=== PATIENT | male | born 1945 | race African-American/Black ===

== ENCOUNTER 2016-09-05 08:07 | Outpatient (CLI) | payer MEDICARE ==
[2016-09-05 12:10] LABS: INR-International Normal Ratio 2.5; Prothrombin Time 26.9 SEC (12.0-14.7)
== END 2016-09-05 08:08 | disposition home or self-care (01) ==
LOC: MADLAB 08:07
PROVIDERS: ATTEND Specialist
DX: Z51.81 Encounter for therapeutic drug level monitoring (principal); Z79.899 Other long term (current) drug therapy
CPT/HCPCS: 36415; 85610

== ENCOUNTER 2016-10-10 09:03 | Outpatient (CLI) | payer MEDICARE ==
[2016-10-10 09:26] LABS: INR-International Normal Ratio 3.1; Prothrombin Time 31.4 SEC (12.0-14.7)
== END 2016-10-10 09:04 | disposition home or self-care (01) ==
LOC: MADLAB 09:03
PROVIDERS: ATTEND Specialist
DX: Z51.81 Encounter for therapeutic drug level monitoring (principal); Z79.899 Other long term (current) drug therapy
CPT/HCPCS: 36415; 85610

== ENCOUNTER 2016-11-08 09:35 | Outpatient (CLI) | payer MEDICARE ==
[2016-11-08 10:02] LABS: INR-International Normal Ratio 2.4; Prothrombin Time 25.8 SEC (12.0-14.7)
== END 2016-11-08 09:36 | disposition home or self-care (01) ==
LOC: MADLAB 09:35
PROVIDERS: ATTEND Specialist
DX: Z51.81 Encounter for therapeutic drug level monitoring (principal); Z79.899 Other long term (current) drug therapy
CPT/HCPCS: 36415; 85610

== ENCOUNTER 2016-12-22 09:17 | Outpatient (CLI) | payer MEDICARE ==
[2016-12-22 09:37] LABS: INR-International Normal Ratio 3.4; Prothrombin Time 34.2 SEC (12.0-14.7)
== END 2016-12-22 09:18 | disposition home or self-care (01) ==
LOC: MADLAB 09:17
PROVIDERS: ATTEND Specialist
DX: Z51.81 Encounter for therapeutic drug level monitoring (principal); Z79.899 Other long term (current) drug therapy
CPT/HCPCS: 36415; 85610

== ENCOUNTER 2017-02-12 09:32 | Outpatient (CLI) | payer MEDICARE ==
[2017-02-12 10:08] LABS: INR-International Normal Ratio 3.2; Prothrombin Time 32.2 SEC (12.0-14.7)
[2017-02-12 10:18] LABS: Anion Gap 8 mmol/L (10-20); BUN (Urea Nitrogen) 16 mg/dL (8.4-25.7); Calc. Creatinine Clearance 0 mL/min (70-130); Calcium 8.8 mg/dL (7.8-10.44); Carbon Dioxide 27 mmol/L (23-31); Cardiac Risk 3.2 (Less than 4.5); Chloride 109 mmol/L (98-107); Cholesterol 148 mg/dl (< 200 Desired); Estimated GFR-MDRD 47; Glucose 86 mg/dL (80-115); HDL Cholesterol 46 mg/dL (>60 Neg Risk); LDL Cholesterol, Calculated 93 mg/dL; Potassium 4.7 mmol/L (3.5-5.1); Sodium 139 mmol/L (136-145); Triglycerides 44 mg/dL (Less than 150)
[2017-02-12 11:46] LABS: Hemoglobin 13.4 g/dL (14.0-18.0); Mean Corpuscular Hemoglobin 29.5 pg (27.0-31.0); Mean Corpuscular Volume 92.2 fl (80.0-94.0); Mean Platelet Volume 8.5 fL (7.4-10.4); Platelet Count 130 thou/uL (130-400); RBC Distribution Width 13.5 % (11.5-14.5); Red Blood Cell (RBC) Count 4.56 mill/uL (4.70-6.10); White Blood Cell (WBC) Count 5.6 thou/uL (4.8-10.8)
== END 2017-02-12 09:33 | disposition home or self-care (01) ==
LOC: MADLAB 09:32
PROVIDERS: ATTEND Specialist
DX: E11.22 Type 2 diabetes mellitus with diabetic chronic kidney disease (principal); N18.3 Chronic kidney disease, stage 3 (moderate); I48.2 Chronic atrial fibrillation; E78.2 Mixed hyperlipidemia; Z79.899 Other long term (current) drug therapy
CPT/HCPCS: 36415; 80048; 80061; 83735; 85027; 85610

== ENCOUNTER 2017-03-22 08:36 | Outpatient (CLI) | payer MEDICARE ==
[2017-03-22 09:12] LABS: INR-International Normal Ratio 3.2; Prothrombin Time 32.1 SEC (12.0-14.7)
[2017-03-22 09:19] LABS: Anion Gap 12 mmol/L (10-20); BUN (Urea Nitrogen) 15 mg/dL (8.4-25.7); Calc. Creatinine Clearance 0 mL/min (70-130); Calcium 9.6 mg/dL (7.8-10.44); Carbon Dioxide 27 mmol/L (23-31); Chloride 106 mmol/L (98-107); Estimated GFR-MDRD 44; Glucose 96 mg/dL (80-115); Magnesium 2.2 mg/dL (1.6-2.6); Potassium 5.3 mmol/L (3.5-5.1); Sodium 140 mmol/L (136-145)
[2017-03-22 10:09] LABS: Hemoglobin 14.8 g/dL (14.0-18.0); Mean Corpuscular Hemoglobin 29.5 pg (27.0-31.0); Mean Corpuscular Volume 92.2 fl (80.0-94.0); Mean Platelet Volume 7.9 fL (7.4-10.4); Platelet Count 181 thou/uL (130-400); RBC Distribution Width 14.4 % (11.5-14.5); Red Blood Cell (RBC) Count 5.02 mill/uL (4.70-6.10); White Blood Cell (WBC) Count 5.2 thou/uL (4.8-10.8)
== END 2017-03-22 08:37 | disposition home or self-care (01) ==
LOC: MADLAB 08:36
PROVIDERS: ATTEND Specialist
DX: I48.0 Paroxysmal atrial fibrillation (principal); I25.10 Atherosclerotic heart disease of native coronary artery without angina pectoris; Z79.899 Other long term (current) drug therapy
CPT/HCPCS: 36415; 80048; 83735; 85027; 85610

== ENCOUNTER 2017-07-06 09:31 | Outpatient (CLI) | payer MEDICARE ==
[2017-07-06 09:56] LABS: INR-International Normal Ratio 2.6; Prothrombin Time 28.9 SEC (12.0-14.7)
== END 2017-07-06 09:32 | disposition home or self-care (01) ==
LOC: MADLAB 09:31
PROVIDERS: ATTEND Specialist
DX: Z51.81 Encounter for therapeutic drug level monitoring (principal); Z79.899 Other long term (current) drug therapy
CPT/HCPCS: 36415; 85610

== ENCOUNTER 2017-11-15 08:57 | Outpatient (CLI) | payer MEDICARE ==
[2017-11-15 10:02] LABS: INR-International Normal Ratio 3.3
[2017-11-15 10:03] LABS: Hemoglobin 13.7 g/dL (14.0-18.0); Mean Corpuscular HGB CONC 31.6 g/dL (32.0-36.0); Mean Corpuscular Volume 94.3 fL (80.0-94.0); Platelet Count 119 thou/uL (130-400); RBC Distribution Width 14.4 % (11.5-14.5); Red Blood Cell (RBC) Count 4.55 mill/uL (4.70-6.10); White Blood Cell (WBC) Count 5.8 thou/uL (4.8-10.8)
[2017-11-15 10:22] LABS: ALT (SGPT) 21 U/L (8-55); AST (SGOT) 28 U/L (5-34); Albumin 3.8 g/dL (3.4-4.8); Alkaline Phosphatase 92 U/L (40-150); Anion Gap 15 mmol/L (10-20); BUN (Urea Nitrogen) 15 mg/dL (8.4-25.7); Bilirubin, Direct 0.4 mg/dL (0.1-0.3); Bilirubin, Total 0.8 mg/dL (0.2-1.2); Calc. Creatinine Clearance 0 mL/min (70-130); Carbon Dioxide 23 mmol/L (23-31); Chloride 108 mmol/L (98-107); Estimated GFR-MDRD 47; Glucose 112 mg/dL (80-115); Potassium 4.2 mmol/L (3.5-5.1); Protein, Total 6.7 g/dL (5.8-8.1); Sodium 142 mmol/L (136-145)
== END 2017-11-15 08:58 | disposition home or self-care (01) ==
LOC: MADLAB 08:57
PROVIDERS: ATTEND Specialist
DX: Z51.81 Encounter for therapeutic drug level monitoring (principal); Z79.899 Other long term (current) drug therapy
CPT/HCPCS: 36415; 80048; 80076; 85027; 85610

== ENCOUNTER 2018-02-04 07:14 | Emergency (ER) | payer MEDICARE ==
[2018-02-04] MEDS ORDERED: HYDROcodone/Acetaminophen 5/325 mg Tablet ONE (07:54)
[2018-02-04] MEDS ORDERED: Dexamethasone 4 MG TAB ONE (07:54)
[2018-02-04] MEDS ORDERED: Acyclovir 200 mg Capsule ONE (07:54)
== END 2018-02-04 08:00 | disposition home or self-care (01) ==
LOC: MADERS 07:14
DX: B02.9 Zoster without complications (principal); I50.9 Heart failure, unspecified; Z79.899 Other long term (current) drug therapy
CPT/HCPCS: 99282; J8540

== ENCOUNTER 2018-03-12 09:31 | Outpatient (CLI) | payer MEDICARE ==
[2018-03-12 09:54] LABS: INR-International Normal Ratio 2.9; Prothrombin Time 30.7 SEC (12.0-14.7)
== END 2018-03-12 09:32 | disposition home or self-care (01) ==
LOC: MADLAB 09:31
PROVIDERS: ATTEND Specialist
DX: Z79.899 Other long term (current) drug therapy (principal)
CPT/HCPCS: 36415; 85610

== ENCOUNTER 2018-04-30 13:03 | Outpatient (CLI) | payer MEDICARE ==
[2018-04-30 13:49] LABS: Prothrombin Time 42.4 SEC (12.0-14.7)
[2018-04-30 13:50] LABS: INR-International Normal Ratio 4.5
== END 2018-04-30 13:04 | disposition home or self-care (01) ==
LOC: MADLAB 13:03
PROVIDERS: ATTEND Specialist
DX: Z51.81 Encounter for therapeutic drug level monitoring (principal); Z79.899 Other long term (current) drug therapy
CPT/HCPCS: 36415; 85610

== ENCOUNTER 2018-05-23 12:49 | Emergency (ER) | payer MEDICARE ==
[~2018-05-23 12:49] MED LIST: Sodium Chloride 0.9% 1,000 ML BAG ONE
[2018-05-23] MEDS ORDERED: Erythromycin Base 0.5% Ophth Oint 3.5 gm Tube ONE (13:27)
[2018-05-23] MEDS ORDERED: Bacitracin Zinc 1 Packet ONE ×3 (13:29→14:10)
[2018-05-23] MEDS ORDERED: Morphine 4 MG/ML VIAL ONE ×2 (13:37→14:20)
[2018-05-23] MEDS ORDERED: Ondansetron HCl/PF 4 MG/2 ML Vial ONE (13:38)
[2018-05-23 13:55] LABS: Band 1 % (5-11); Eosinophils 9 % (0-10); Hemoglobin 13.4 g/dL (14.0-18.0); Lymphocytes 20 % (21-51); MDiff Complete? YES; Mean Corpuscular Hemoglobin 30.6 pg (27.0-31.0); Mean Corpuscular Volume 92.7 fL (78.0-98.0); Mean Platelet Volume 8.2 fL (7.4-10.4); Monocytes 4 % (0-10); Neutrophil 66 % (42-75); PLT Morphology Comment Appears Adequate; Platelet Count 155 thou/uL (130-400); Red Blood Cell (RBC) Count 4.39 mill/uL (4.70-6.10); White Blood Cell (WBC) Count 5.5 thou/uL (4.8-10.8)
[2018-05-23 13:57] LABS: Anion Gap 14 mmol/L (10-20); BUN (Urea Nitrogen) 17 mg/dL (8.4-25.7); CK (CPK) 141 U/L (30-200); Calc. Creatinine Clearance 0 mL/min (70-130); Calcium 9.2 mg/dL (7.8-10.44); Carbon Dioxide 24 mmol/L (23-31); Chloride 106 mmol/L (98-107); Estimated GFR-MDRD 45; Glucose 124 mg/dL (80-115); Potassium 4.6 mmol/L (3.5-5.1); Sodium 139 mmol/L (136-145)
== END 2018-05-23 16:18 | disposition short-term general hospital (02) ==
LOC: MADERS 12:49
DX: T23.201A Burn of second degree of right hand, unspecified site, initial encounter (principal); T22.211A Burn of second degree of right forearm, initial encounter; T24.221A Burn of second degree of right knee, initial encounter; T20.26XA Burn of second degree of forehead and cheek, initial encounter; T31.0 Burns involving less than 10% of body surface; I11.0 Hypertensive heart disease with heart failure; I50.9 Heart failure, unspecified; E78.5 Hyperlipidemia, unspecified; Z79.899 Other long term (current) drug therapy
CPT/HCPCS: 16020; 80048; 82550; 85025; 96361; 96374; 96375; 96376; J2270; J2405; J7050

== ENCOUNTER 2018-09-17 11:00 | Outpatient (CLI) | payer MEDICARE ==
[2018-09-17 11:32] LABS: INR-International Normal Ratio 2.3; Prothrombin Time 25.1 SEC (12.0-14.7)
== END 2018-09-17 11:01 | disposition home or self-care (01) ==
LOC: MADLAB 11:00
PROVIDERS: ATTEND Specialist
DX: Z51.81 Encounter for therapeutic drug level monitoring (principal); Z79.899 Other long term (current) drug therapy
CPT/HCPCS: 36415; 85610

== ENCOUNTER 2018-11-15 09:06 | Outpatient (CLI) | payer MEDICARE ==
[2018-11-15 10:09] LABS: #Basophils 0.1 thou/uL (0.0-0.2); #Eosinphils 0.2 thou/uL (0.0-0.7); #Lymphocytes 1.4 thou/uL (1.20-3.40); #Monocytes 0.4 thou/uL (0.11-0.59); %Basophils 2.8 % (0.0-1.0); %Eosinophils 3.7 % (0.0-10.0); %Monocytes 7.6 % (0.0-10.0); %Neutrophils 58.8 % (42.0-75.0); Hemoglobin 14.6 g/dL (14.0-18.0); Mean Corpuscular HGB CONC 31.4 g/dL (32.0-36.0); Mean Corpuscular Hemoglobin 28.1 pg (27.0-31.0); Mean Corpuscular Volume 89.7 fL (78.0-98.0); Platelet Count 167 thou/uL (130-400); RBC Distribution Width 14.4 % (11.5-14.5); Red Blood Cell (RBC) Count 5.19 mill/uL (4.70-6.10); White Blood Cell (WBC) Count 5.1 thou/uL (4.8-10.8)
[2018-11-15 10:19] LABS: ALT (SGPT) 32 U/L (8-55); AST (SGOT) 38 U/L (5-34); Albumin 4.2 g/dL (3.4-4.8); Alkaline Phosphatase 102 U/L (40-150); Anion Gap 13 mmol/L (10-20); BUN (Urea Nitrogen) 16 mg/dL (8.4-25.7); Bilirubin, Total 0.6 mg/dL (0.2-1.2); Calc. Creatinine Clearance 0 mL/min (70-130); Calcium 9.3 mg/dL (7.8-10.44); Carbon Dioxide 24 mmol/L (23-31); Cardiac Risk 3.2 (Less than 4.5); Chloride 108 mmol/L (98-107); Cholesterol 167 mg/dl (< 200 Desired); Estimated GFR-MDRD 48; Globulin 3.6 g/dL (2.4-3.5); Glucose 97 mg/dL (83-110); HDL Cholesterol 53 mg/dL (>60 Neg Risk); LDL Cholesterol, Calculated 105 mg/dL; Magnesium 2.1 mg/dL (1.6-2.6); Potassium 4.5 mmol/L (3.5-5.1); Protein, Total 7.8 g/dL (5.8-8.1); Sodium 140 mmol/L (136-145); Triglycerides 44 mg/dL (Less than 150)
[2018-11-15 10:20] LABS: INR-International Normal Ratio 2.1
--- NOTE | 2018-11-15 10:49 | RAD ---
CHEST TWO VIEWS: HISTORY: COPD and CHF. Pacemaker placement. COMPARISON: 04/02/2014 FINDINGS: A single view of the chest shows an enlarged cardiomediastinal silhouette. The patient is status pos t sternotomy. There is a left subclavian pacemaker with its leads in the right atrium and overlying the left heart, which could potentially be in the right ventricle. No pneumothorax is seen. There i s no evidence of consolidation, mass, or pleural effusion. IMPRESSION: 1. No evidence of acute cardiopulmonary disease. 2. Cardiac pacemaker, as above. POS: [facility] [place]
== END 2018-11-15 09:07 | disposition home or self-care (01) ==
LOC: MADLAB 09:06
PROVIDERS: ATTEND Specialist
DX: J44.9 Chronic obstructive pulmonary disease, unspecified (principal); I50.42 Chronic combined systolic (congestive) and diastolic (congestive) heart failure; E78.2 Mixed hyperlipidemia; I48.0 Paroxysmal atrial fibrillation; Z79.899 Other long term (current) drug therapy; Z95.0 Presence of cardiac pacemaker
CPT/HCPCS: 36415; 71046; 80053; 80061; 83735; 84443; 85025; 85610

== ENCOUNTER 2019-01-22 10:42 | Emergency (ER) | payer MEDICARE ==
[2019-01-22 11:55] LABS: Prothrombin Time 22.3 SEC (12.0-14.7)
[2019-01-22 12:00] LABS: #Basophils 0.1 thou/uL (0.0-0.2); #Eosinphils 0.2 thou/uL (0.0-0.7); #Monocytes 0.4 thou/uL (0.11-0.59); #Neutrophils 2.9 thou/uL (1.40-6.50); %Basophils 1.8 % (0.0-1.0); %Eosinophils 4.3 % (0.0-10.0); %Lymphocytes 21.5 % (21.0-51.0); %Neutrophils 63.6 % (42.0-75.0); Burr Cells SLIGHT = 2-5 cells (100X) (0-1/hpf); Hemoglobin 13.9 g/dL (14.0-18.0); MDiff Complete? YES; Mean Corpuscular HGB CONC 31.8 g/dL (32.0-36.0); Mean Corpuscular Hemoglobin 28.6 pg (27.0-31.0); Mean Corpuscular Volume 89.8 fL (78.0-98.0); Platelet Count 141 thou/uL (130-400); Platelet Morphology Comment Appears Adequate; RBC Distribution Width 14.4 % (11.5-14.5); Red Blood Cell (RBC) Count 4.88 mill/uL (4.70-6.10); White Blood Cell (WBC) Count 4.6 thou/uL (4.8-10.8)
[2019-01-22 12:06] LABS: ALT (SGPT) 23 U/L (8-55); AST (SGOT) 26 U/L (5-34); Albumin 3.8 g/dL (3.4-4.8); Alkaline Phosphatase 93 U/L (40-150); Anion Gap 12 mmol/L (10-20); BUN (Urea Nitrogen) 16 mg/dL (8.4-25.7); Bilirubin, Total 1.2 mg/dL (0.2-1.2); Calc. Creatinine Clearance 0 mL/min (70-130); Calcium 8.9 mg/dL (7.8-10.44); Carbon Dioxide 24 mmol/L (23-31); Chloride 109 mmol/L (98-107); Estimated GFR-MDRD 46; Globulin 3.1 g/dL (2.4-3.5); Glucose 94 mg/dL (83-110); Magnesium 1.7 mg/dL (1.6-2.6); Potassium 4.2 mmol/L (3.5-5.1); Protein, Total 6.9 g/dL (5.8-8.1); Sodium 141 mmol/L (136-145)
[2019-01-22] MEDS ORDERED: Nitroglycerin 2% Ointment 1 INCH/1 GM Packet ONE (12:16)
[2019-01-22 12:23] LABS: CKMB 2.8 ng/mL (0-6.6)
--- NOTE | 2019-01-22 12:39 | RAD ---
CHEST TWO VIEWS: HISTORY: Dyspnea on exertion. Edema. Shortness of breath. COMPARISON: 11/15/2008 FINDINGS: The apices are not completely included on the PA radiograph. There is minimal cardiomegaly. Postop midline sternotomy with multivalve replacement. Left ICD. Mild bilateral vascular congestion, stabl e. No confluent pneumonia or overt pleural effusion. IMPRESSION: 1. Stable cardiomegaly and postoperative changes. 2. Mild vascular congestion without other acute process. POS: OFF
[2019-01-22] MEDS ORDERED: Furosemide 20 MG/2 ML VIAL ONE (13:56)
== END 2019-01-22 14:00 | disposition short-term general hospital (02) ==
LOC: MADERS 10:42
DX: T82.119A Breakdown (mechanical) of unspecified cardiac electronic device, initial encounter (principal); E87.70 Fluid overload, unspecified; I11.0 Hypertensive heart disease with heart failure; I50.9 Heart failure, unspecified; E78.5 Hyperlipidemia, unspecified; Z79.01 Long term (current) use of anticoagulants; Z79.899 Other long term (current) drug therapy
CPT/HCPCS: 71046; 80053; 82553; 83735; 83880; 84484; 85025; 85610; 93005; 96374; J1940

== ENCOUNTER 2019-02-03 08:36 | Outpatient (CLI) | payer MEDICARE ==
[2019-02-03 09:38] LABS: Prothrombin Time 48.5 SEC (12.0-14.7)
[2019-02-03 09:53] LABS: INR-International Normal Ratio 5.3
== END 2019-02-03 08:37 | disposition home or self-care (01) ==
LOC: MADLAB 08:36
PROVIDERS: ATTEND Specialist
DX: Z51.81 Encounter for therapeutic drug level monitoring (principal); Z79.899 Other long term (current) drug therapy
CPT/HCPCS: 36415; 85610

== ENCOUNTER 2019-02-10 09:13 | Outpatient (CLI) | payer MEDICARE ==
[2019-02-10 10:01] LABS: INR-International Normal Ratio 3.3; Prothrombin Time 33.3 SEC (12.0-14.7)
== END 2019-02-10 09:14 | disposition home or self-care (01) ==
LOC: MADLAB 09:13
PROVIDERS: ATTEND Specialist
DX: Z51.81 Encounter for therapeutic drug level monitoring (principal); Z79.899 Other long term (current) drug therapy
CPT/HCPCS: 36415; 85610

== ENCOUNTER 2019-03-21 09:33 | Outpatient (CLI) | payer MEDICARE ==
[2019-03-21 09:55] LABS: Prothrombin Time 51.6 SEC (12.0-14.7)
[2019-03-21 10:21] LABS: INR-International Normal Ratio 5.8
== END 2019-03-21 09:34 | disposition home or self-care (01) ==
LOC: MADLAB 09:33
PROVIDERS: ATTEND Specialist
DX: Z51.81 Encounter for therapeutic drug level monitoring (principal); Z79.899 Other long term (current) drug therapy
CPT/HCPCS: 36415; 85610

== ENCOUNTER 2019-04-07 09:44 | Outpatient (CLI) | payer MEDICARE ==
[2019-04-07 10:04] LABS: INR-International Normal Ratio 3.1
== END 2019-04-07 09:45 | disposition home or self-care (01) ==
LOC: MADLAB 09:44
PROVIDERS: ATTEND Specialist
DX: Z51.81 Encounter for therapeutic drug level monitoring (principal); Z79.899 Other long term (current) drug therapy
CPT/HCPCS: 36415; 85610

== ENCOUNTER 2019-04-17 09:38 | Outpatient (CLI) | payer MEDICARE ==
[2019-04-17 10:28] LABS: INR-International Normal Ratio 2.6
== END 2019-04-17 09:39 | disposition home or self-care (01) ==
LOC: MADLAB 09:38
PROVIDERS: ATTEND Specialist
DX: Z51.81 Encounter for therapeutic drug level monitoring (principal); Z79.899 Other long term (current) drug therapy
CPT/HCPCS: 36415; 85610

== ENCOUNTER 2019-05-07 09:05 | Outpatient (CLI) | payer MEDICARE ==
[2019-05-07 09:29] LABS: INR-International Normal Ratio 2.7; Prothrombin Time 28.3 SEC (12.0-14.7)
== END 2019-05-07 09:06 | disposition home or self-care (01) ==
LOC: MADLAB 09:05
PROVIDERS: ATTEND Specialist
DX: Z51.81 Encounter for therapeutic drug level monitoring (principal); Z79.899 Other long term (current) drug therapy
CPT/HCPCS: 36415; 85610

== ENCOUNTER 2019-06-11 09:23 | Outpatient (CLI) | payer MEDICARE ==
[2019-06-11 10:02] LABS: INR-International Normal Ratio 3.9; Prothrombin Time 37.7 SEC (12.0-14.7)
== END 2019-06-11 09:24 | disposition home or self-care (01) ==
LOC: MADLAB 09:23
PROVIDERS: ATTEND Specialist
DX: Z51.81 Encounter for therapeutic drug level monitoring (principal); Z79.899 Other long term (current) drug therapy
CPT/HCPCS: 36415; 85610

== ENCOUNTER 2019-06-26 09:48 | Outpatient (CLI) | payer MEDICARE ==
[2019-06-26 10:17] LABS: INR-International Normal Ratio 3.2; Prothrombin Time 32.7 SEC (12.0-14.7)
[2019-06-26 10:30] LABS: Anion Gap 14 mmol/L (10-20); BUN (Urea Nitrogen) 17 mg/dL (8.4-25.7); Calc. Creatinine Clearance 0 mL/min (70-130); Calcium 8.9 mg/dL (7.8-10.44); Carbon Dioxide 23 mmol/L (23-31); Chloride 107 mmol/L (98-107); Estimated GFR-MDRD 41; Glucose 104 mg/dL (83-110); Potassium 4.4 mmol/L (3.5-5.1); Sodium 140 mmol/L (136-145)
[2019-06-26 10:39] LABS: Hemoglobin 13.5 g/dL (14.0-18.0); Mean Corpuscular HGB CONC 31.6 g/dL (32.0-36.0); Mean Corpuscular Hemoglobin 28.7 pg (27.0-31.0); Mean Corpuscular Volume 90.6 fL (78.0-98.0); Mean Platelet Volume 8.9 fL (7.4-10.4); Platelet Count 150 thou/uL (130-400); RBC Distribution Width 14.4 % (11.5-14.5); Red Blood Cell (RBC) Count 4.72 mill/uL (4.70-6.10); White Blood Cell (WBC) Count 3.8 thou/uL (4.8-10.8)
[2019-06-26 10:46] LABS: Band 3 % (5-11); Lymphocytes 20 % (21-51)
[2019-06-26 10:47] LABS: Eosinophils 1 % (0-10); MDiff Complete? YES; Monocytes 4 % (0-10); Neutrophil 72 % (42-75); Nucleated RBC 0 % (0)
[2019-06-26 10:48] LABS: Large Platelets SLIGHT; Platelet Morphology Comment Appears Adequate; RBC Morphology Normal
== END 2019-06-26 09:49 | disposition home or self-care (01) ==
LOC: MADLAB 09:48
PROVIDERS: ATTEND Specialist
DX: I50.42 Chronic combined systolic (congestive) and diastolic (congestive) heart failure (principal)
CPT/HCPCS: 36415; 80048; 83735; 84439; 84443; 85025; 85610

== ENCOUNTER 2019-07-09 09:23 | Outpatient (CLI) | payer MEDICARE ==
[2019-07-09 09:54] LABS: INR-International Normal Ratio 2.8
== END 2019-07-09 09:24 | disposition home or self-care (01) ==
LOC: MADLAB 09:23
PROVIDERS: ATTEND Specialist
DX: Z51.81 Encounter for therapeutic drug level monitoring (principal); Z79.899 Other long term (current) drug therapy
CPT/HCPCS: 36415; 85610

== ENCOUNTER 2019-07-24 14:53 | Emergency (ER) | payer MEDICARE ==
--- NOTE | 2019-07-24 15:44 | RAD ---
PORTABLE CHEST ONE VIEW: 07/24/19 at 3:42 p.m. HISTORY: Dyspnea and cough. FINDINGS: Comparison made with exam of 01/22/19. Changes of median sternotomy again seen. The left sided pacemaker device remains in place. The heart size is enlarged. The lungs are well expanded without lobar consolidation, pneumothoraces, tammie pulm onary edema or pleural effusions. IMPRESSION: No acute process. POS: [facility]
[2019-07-24] MEDS ORDERED: methylPREDNISolone Sod Succ/PF 125 MG/2 ML VIAL ONE (15:56)
[2019-07-24 16:38] LABS: #Basophils 0.2 thou/uL (0.0-0.2); #Eosinphils 0.1 thou/uL (0.0-0.7); #Lymphocytes 0.9 thou/uL (1.20-3.40); #Monocytes 0.7 thou/uL (0.11-0.59); #Neutrophils 4.1 thou/uL (1.40-6.50); %Basophils 2.7 % (0.0-1.0); %Eosinophils 1.7 % (0.0-10.0); %Monocytes 11.2 % (0.0-10.0); %Neutrophils 69.4 % (42.0-75.0); Mean Corpuscular HGB CONC 29.3 g/dL (32.0-36.0); Mean Corpuscular Hemoglobin 27.9 pg (27.0-31.0); Mean Corpuscular Volume 95.3 fL (78.0-98.0); Mean Platelet Volume 10.1 fL (7.4-10.4); Platelet Count 147 thou/uL (130-400); RBC Distribution Width 14.3 % (11.5-14.5); Red Blood Cell (RBC) Count 5.73 mill/uL (4.70-6.10); White Blood Cell (WBC) Count 5.9 thou/uL (4.8-10.8)
[2019-07-24 16:50] LABS: ALT (SGPT) 23 U/L (8-55); AST (SGOT) 25 U/L (5-34); Albumin 4.5 g/dL (3.4-4.8); Alkaline Phosphatase 103 U/L (40-110); Anion Gap 16 mmol/L (10-20); BUN (Urea Nitrogen) 19 mg/dL (8.4-25.7); Bilirubin, Total 1.5 mg/dL (0.2-1.2); Calc. Creatinine Clearance 0 mL/min (70-130); Calcium 9.9 mg/dL (7.8-10.44); Carbon Dioxide 22 mmol/L (23-31); Chloride 106 mmol/L (98-107); Estimated GFR-MDRD 36; Globulin 3.7 g/dL (2.4-3.5); Glucose 104 mg/dL (83-110); Potassium 4.9 mmol/L (3.5-5.1); Protein, Total 8.2 g/dL (5.8-8.1); Sodium 139 mmol/L (136-145)
[2019-07-24 17:45] LABS: PTT 51.9 SEC (22.9-36.1); Prothrombin Time 30.5 SEC (12.0-14.7)
== END 2019-07-24 18:15 | disposition home or self-care (01) ==
LOC: MADERS 14:53
DX: I11.0 Hypertensive heart disease with heart failure (principal); I50.9 Heart failure, unspecified; J44.1 Chronic obstructive pulmonary disease with (acute) exacerbation; E78.5 Hyperlipidemia, unspecified; Z79.899 Other long term (current) drug therapy; Z79.01 Long term (current) use of anticoagulants
CPT/HCPCS: 36415; 71045; 80053; 83880; 85025; 85379; 85610; 85730; 87804; 94760; 96374; J2930; J7620

== ENCOUNTER 2019-10-28 09:58 | Outpatient (CLI) | payer MEDICARE ==
[2019-10-28 10:36] LABS: INR-International Normal Ratio 2.4; Prothrombin Time 25.7 SEC (12.0-14.7)
[2019-10-28 10:47] LABS: ALT (SGPT) 20 U/L (8-55); AST (SGOT) 25 U/L (5-34); Alkaline Phosphatase 81 U/L (40-110); Anion Gap 13 mmol/L (10-20); BUN (Urea Nitrogen) 22 mg/dL (8.4-25.7); Calc. Creatinine Clearance 0 mL/min (70-130); Calcium 8.8 mg/dL (7.8-10.44); Carbon Dioxide 24 mmol/L (23-31); Cardiac Risk 2.9 (Less than 4.5); Chloride 108 mmol/L (98-107); Cholesterol 133 mg/dl (< 200 Desired); Estimated GFR-MDRD 38; Glucose 95 mg/dL (83-110); HDL Cholesterol 46 mg/dL (>60 Neg Risk); LDL Cholesterol, Calculated 76 mg/dL; Magnesium 2.1 mg/dL (1.6-2.6); Sodium 140 mmol/L (136-145); Triglycerides 54 mg/dL (Less than 150)
[2019-10-28 10:51] LABS: Hemoglobin 14.4 g/dL (14.0-18.0); Mean Corpuscular HGB CONC 29.7 g/dL (32.0-36.0); Mean Corpuscular Hemoglobin 28.1 pg (27.0-31.0); Mean Corpuscular Volume 94.6 fL (78.0-98.0); Red Blood Cell (RBC) Count 5.12 mill/uL (4.70-6.10); White Blood Cell (WBC) Count 4.4 thou/uL (4.8-10.8)
[2019-10-28 10:52] LABS: #Basophils 0.1 thou/uL (0.0-0.2); #Eosinphils 0.2 thou/uL (0.0-0.7); #Lymphocytes 1.1 thou/uL (1.20-3.40); #Monocytes 0.4 thou/uL (0.11-0.59); #Neutrophils 2.6 thou/uL (1.40-6.50); %Basophils 2.5 % (0.0-1.0); %Eosinophils 5.4 % (0.0-10.0); %Monocytes 9.4 % (0.0-10.0); %Neutrophils 58.8 % (42.0-75.0); Anisocytosis SLIGHT = 6-15 cells (100X) (0-5/hpf); Hypochromia SLIGHT = 6-15 cells (100X) (0-5/hpf); Large Platelets SLIGHT; MDiff Complete? YES; Mean Platelet Volume 8.3 fL (7.4-10.4); Platelet Count 145 thou/uL (130-400); Platelet Morphology Comment Appears Decreased; RBC Distribution Width 14.4 % (11.5-14.5)
== END 2019-10-28 09:59 | disposition home or self-care (01) ==
LOC: MADLAB 09:58
PROVIDERS: ATTEND Physician Assistant Medical
DX: E78.2 Mixed hyperlipidemia (principal); I11.0 Hypertensive heart disease with heart failure; I50.42 Chronic combined systolic (congestive) and diastolic (congestive) heart failure
CPT/HCPCS: 36415; 80053; 80061; 83735; 83880; 85025; 85610

== ENCOUNTER 2020-01-02 14:13 | Outpatient (CLI) | payer MEDICARE, OTHER ==
[2020-01-02 15:02] LABS: Prothrombin Time 40.4 SEC (12.0-14.7)
[2020-01-02 15:31] LABS: INR-International Normal Ratio 4.2
[2020-01-03 13:14] LABS: SARS-CoV-2 MS2 Positive; SARS-CoV-2 N Gene Negative; SARS-CoV-2 S Gene Negative; SARS-CoV-2 orf1ab Negative
== END 2020-01-02 14:14 | disposition home or self-care (01) ==
LOC: MADLAB 14:13
PROVIDERS: ATTEND Specialist
DX: Z51.81 Encounter for therapeutic drug level monitoring (principal); Z11.59 Encounter for screening for other viral diseases; Z79.899 Other long term (current) drug therapy
CPT/HCPCS: 36415; 85610; 87635; U0002

== ENCOUNTER 2020-04-20 08:48 | Outpatient (CLI) | payer MEDICARE ==
[2020-04-20 09:16] LABS: INR-International Normal Ratio 3.9; Prothrombin Time 37.7 sec (12.0-14.7)
== END 2020-04-20 08:49 | disposition home or self-care (01) ==
LOC: MADLAB 08:48
PROVIDERS: ATTEND Specialist
DX: Z51.81 Encounter for therapeutic drug level monitoring (principal); Z79.899 Other long term (current) drug therapy
CPT/HCPCS: 36415; 85610

== ENCOUNTER 2020-06-01 09:24 | Outpatient (CLI) | payer MEDICARE ==
[2020-06-01 09:47] LABS: INR-International Normal Ratio 3.4; Prothrombin Time 34.2 sec (12.0-14.7)
== END 2020-06-01 09:25 | disposition home or self-care (01) ==
LOC: MADLAB 09:24
PROVIDERS: ATTEND Specialist
DX: Z51.81 Encounter for therapeutic drug level monitoring (principal); Z79.899 Other long term (current) drug therapy
CPT/HCPCS: 36415; 85610

== ENCOUNTER 2020-07-08 14:53 | Emergency (ER) | payer MEDICARE ==
[2020-07-08 16:03] LABS: INR-International Normal Ratio 3.4; PTT 57.8 sec (22.9-36.1); Prothrombin Time 35.2 sec (12.0-14.7)
[2020-07-08 16:08] LABS: #Basophils 0.1 thou/uL (0.0-0.2); #Eosinphils 0.4 thou/uL (0.0-0.7); #Lymphocytes 0.7 thou/uL (1.20-3.40); #Monocytes 0.4 thou/uL (0.11-0.59); #Neutrophils 2.2 thou/uL (1.40-6.50); %Lymphocytes 18.9 % (21.0-51.0); %Monocytes 11.1 % (0.0-10.0); Hemoglobin 11.7 g/dL (14.0-18.0); Mean Corpuscular HGB CONC 30.8 g/dL (32.0-36.0); Mean Corpuscular Hemoglobin 29.1 pg (27.0-31.0); Mean Corpuscular Volume 94.3 fL (78.0-98.0); Mean Platelet Volume 7.6 fL (7.4-10.4); Platelet Count 129 thou/uL (130-400); RBC Distribution Width 14.8 % (11.5-14.5); Red Blood Cell (RBC) Count 4.04 mill/uL (4.70-6.10); White Blood Cell (WBC) Count 3.8 thou/uL (4.8-10.8)
[2020-07-08 16:13] LABS: ALT (SGPT) 17 U/L (8-55); AST (SGOT) 22 U/L (5-34); Albumin 3.4 g/dL (3.4-4.8); Alkaline Phosphatase 79 U/L (40-110); Anion Gap 14 mmol/L (10-20); BUN (Urea Nitrogen) 27 mg/dL (8.4-25.7); Bilirubin, Total 0.7 mg/dL (0.2-1.2); Calc. Creatinine Clearance 0 mL/min (70-130); Calcium 8.3 mg/dL (7.8-10.44); Carbon Dioxide 22 mmol/L (23-31); Chloride 108 mmol/L (98-107); Estimated GFR-MDRD 32; Globulin 3.5 g/dL (2.4-3.5); Glucose 98 mg/dL (83-110); Potassium 4.5 mmol/L (3.5-5.1); Protein, Total 6.9 g/dL (5.8-8.1); Sodium 139 mmol/L (136-145)
--- NOTE | 2020-07-08 16:30 | RAD ---
Chest 2 views HISTORY: Dyspnea. Fluid overload. COMPARISON: 07/24/2019. FINDINGS: Cardiac silhouette remains enlarged. Pulmonary vasculature is within normal limits. Mediastinum is midline with postoperative changes subclavian cardiac electronic device unchanged in p osition. No confluent airspace consolidation, pneumothorax, or pleural fluid are apparent. IMPRESSION : Cardiomegaly. No evidence of pulmonary vascular congestion.
[2020-07-08 16:59] LABS: Bilirubin Negative (Negative); Blood, Urine Small (Negative); Clarity Clear (Clear); Glucose, Urine (Dipstick) Negative (Negative); Ketone, Urine Negative (Negative); Leukocyte Negative (Negative); Nitrite Negative (Negative); Protein, Urine (Dipstick) 100 mg/dL (Neg-Trace)
[2020-07-08 17:05] LABS: Squamous Epithelial 0-3 HPF (0-3); WBC/HPF 0-3 HPF (0-3)
[2020-07-08 17:06] LABS: Bacteria/HPF Rare-Few HPF (None Seen)
[2020-07-08] MEDS ORDERED: Furosemide 40 MG/4 ML VIAL ONE (17:06)
--- NOTE | 2020-07-08 18:25 | CT ---
CT ABDOMEN AND PELVIS WITHOUT IV CONTRAST: 07/08/20 INDICATIONS: Assess for groin hematoma. FINDINGS: Lung bases appear clear. There is cardiomegaly with mild vascular congestion. Liver, spleen and pancr eas appear unremarkable. Kidneys unremarkable. No hydronephrosis. Small and large bowel loops unremar kable. Diverticulosis of the left colon and sigmoid is noted. Urinary bladder shows mild urinary bladder wall thickening. Mild prostatic hypertrophy. Aorta is normal caliber. Left iliac artery stent is noted. There is diffuse haziness in the subcutaneous adipose tissue of the abdomen, pelvis, and proximal thi gh regions consistent with diffuse edema/anasarca. Correlate clinically. There is no evidence of loca lized hematoma in either groin or inguinal region. Osseous structures are unremarkable. IMPRESSION: 1. No evidence of acute intra-abdominal process. 2. Diffuse haziness in the subcutaneous tissues of the abdomen and pelvis and thighs. Consider d iffuse subcutaneous edema. POS: [facility]
== END 2020-07-08 17:23 | disposition home or self-care (01) ==
LOC: MADERS 14:53
DX: I13.10 Hypertensive heart and chronic kidney disease without heart failure, with stage 1 through stage 4 chronic kidney disease, or unspecified chronic kidney disease (principal); I50.9 Heart failure, unspecified; N18.9 Chronic kidney disease, unspecified; E78.5 Hyperlipidemia, unspecified; I25.10 Atherosclerotic heart disease of native coronary artery without angina pectoris; J44.9 Chronic obstructive pulmonary disease, unspecified; Z79.01 Long term (current) use of anticoagulants
CPT/HCPCS: 36415; 71046; 74176; 80053; 81003; 81015; 83880; 85025; 85610; 85730; 96372; J1940

== ENCOUNTER 2020-07-21 09:53 | Outpatient (CLI) | payer MEDICARE ==
[2020-07-21 10:23] LABS: Prothrombin Time 39.9 sec (12.0-14.7)
[2020-07-21 10:32] LABS: Anion Gap 13 mmol/L (10-20); BUN (Urea Nitrogen) 23 mg/dL (8.4-25.7); Calc. Creatinine Clearance 0 mL/min (70-130); Calcium 8.2 mg/dL (7.8-10.44); Carbon Dioxide 25 mmol/L (23-31); Chloride 106 mmol/L (98-107); Estimated GFR-MDRD 35; Glucose 90 mg/dL (83-110); Potassium 4.5 mmol/L (3.5-5.1); Sodium 139 mmol/L (136-145)
== END 2020-07-21 09:54 | disposition home or self-care (01) ==
LOC: MADLAB 09:53
PROVIDERS: ATTEND Specialist
DX: I11.0 Hypertensive heart disease with heart failure (principal); I50.42 Chronic combined systolic (congestive) and diastolic (congestive) heart failure; Z79.899 Other long term (current) drug therapy
CPT/HCPCS: 36415; 80048; 85610

== ENCOUNTER 2020-09-05 08:47 | Emergency (ER) | payer MEDICARE ==
[2020-09-05 09:32] LABS: #Basophils 0.1 thou/uL (0.0-0.2); #Eosinphils 0.1 thou/uL (0.0-0.7); #Lymphocytes 0.9 thou/uL (1.20-3.40); #Monocytes 0.5 thou/uL (0.11-0.59); #Neutrophils 3.4 thou/uL (1.40-6.50); %Basophils 1.8 % (0.0-1.0); %Eosinophils 2.6 % (0.0-10.0); %Lymphocytes 17.2 % (21.0-51.0); %Monocytes 9.3 % (0.0-10.0); %Neutrophils 69.1 % (42.0-75.0); Hemoglobin 6.4 g/dL (14.0-18.0); Mean Corpuscular HGB CONC 31.7 g/dL (32.0-36.0); Mean Corpuscular Hemoglobin 30.2 pg (27.0-31.0); Mean Corpuscular Volume 95.2 fL (78.0-98.0); Mean Platelet Volume 7.1 fL (7.4-10.4); Platelet Count 143 thou/uL (130-400); RBC Distribution Width 16.2 % (11.5-14.5); Red Blood Cell (RBC) Count 2.11 mill/uL (4.70-6.10); White Blood Cell (WBC) Count 4.9 thou/uL (4.8-10.8)
[2020-09-05] MEDS ORDERED: Sodium Chloride 0.9% 50 ML ONE ×2 (09:40→10:17)
[2020-09-05] MEDS ORDERED: Ondansetron PF 4 MG/2 ML Vial ONE (09:40)
[2020-09-05] MEDS ORDERED: Pantoprazole 40 MG VIAL ONE ×2 (09:40→10:17)
[2020-09-05 09:42] LABS: PTT 77.6 sec (22.9-36.1); Prothrombin Time 62.3 sec (12.0-14.7)
[2020-09-05 09:49] LABS: ALT (SGPT) 16 U/L (8-55); AST (SGOT) 23 U/L (5-34); Albumin 3.2 g/dL (3.4-4.8); Alkaline Phosphatase 63 U/L (40-110); Anion Gap 18 mmol/L (10-20); BUN (Urea Nitrogen) 59 mg/dL (8.4-25.7); Bilirubin, Total 0.6 mg/dL (0.2-1.2); Calc. Creatinine Clearance 0 mL/min (70-130); Calcium 7.9 mg/dL (7.8-10.44); Carbon Dioxide 18 mmol/L (23-31); Chloride 110 mmol/L (98-107); Globulin 2.9 g/dL (2.4-3.5); Glucose 112 mg/dL (83-110); Potassium 5.4 mmol/L (3.5-5.1); Protein, Total 6.1 g/dL (5.8-8.1); Sodium 141 mmol/L (136-145)
[2020-09-05] MEDS ORDERED: Phytonadione 10 MG/ML AMP ONE (10:03)
[2020-09-05] MEDS ORDERED: Dextrose 50% Abboject 50 ML SYRINGE ONE (10:17)
[2020-09-05] MEDS ORDERED: Sodium Chloride 0.9% 100 ML ONE (10:17)
[2020-09-05] MEDS ORDERED: Lidocaine-Prilocaine 2.5% Cream 5 GM TUBE ONE (10:17)
[2020-09-05] MEDS ORDERED: Insulin Regular 300 UNITS/3 ML VIAL ONE (10:17)
--- NOTE | 2020-09-05 10:36 | CT ---
CT abdomen and pelvis noncontrast HISTORY: Nausea vomiting. Abdomen pain. Renal failure. COMPARISON: 07/08/2020. FINDINGS: Each renal collecting system, ureter, and urinary bladder are decompressed without stone ev ident. Mild linear scarring at the left lung base. Cardiac electronic device leads partially visualized. Hyperdense material within the gallbladder lumen likely represents biliary sludge. No hyp erdense stones evident. Prominent degenerative changes throughout the lumbar spine. Left iliac arterial stents again demonstr ated. Lack of contrast limits evaluation of the soft tissues. Diffuse wall thickening of the stomach is sim ilar in appearance to the prior study. No evidence of bowel obstruction. Nonenlarged, nonspecific lymph nodes are scattered throughout the retroperitoneum and along the each inguinal chain. Diverticula arise from the colon. IMPRESSION : Diffuse gastric wall thickening is unchanged from the 2019 study. Diverticulosis. No evidence of diverticulitis. No evidence of bowel obstruction.
--- NOTE | 2020-09-05 11:09 | RAD ---
EXAM: Chest one view: HISTORY: Fluid overload COMPARISON: 07/08/2020 FINDINGS: Postop midline sternotomy and left ICD. Heart size: Cardiomegaly. Valvular replacement. Lungs: Bilateral vascular congestion. No evidence for confluent lobar pneumonia, significant pleural effusion, acute edema, or pneumothorax , or other significant acute process. IMPRESSION: Stable exam.
== END 2020-09-05 11:17 | disposition short-term general hospital (02) ==
LOC: MADERS 08:47
DX: K92.2 Gastrointestinal hemorrhage, unspecified (principal); N17.9 Acute kidney failure, unspecified; E87.70 Fluid overload, unspecified; E87.5 Hyperkalemia; R79.1 Abnormal coagulation profile; J44.9 Chronic obstructive pulmonary disease, unspecified; E78.5 Hyperlipidemia, unspecified; I11.0 Hypertensive heart disease with heart failure; I50.9 Heart failure, unspecified; Z79.899 Other long term (current) drug therapy
CPT/HCPCS: 36416; 36430; 71045; 74176; 80053; 82274; 83605; 83880; 85025; 85610; 85730; 86850; 86900; 86901; 93005; 96374; 96375; 96376; 99292; C9113; J1815; J2405; J3430; J3490; J7050; P9016

== ENCOUNTER 2020-09-28 12:03 | Outpatient (CLI) | payer MEDICARE ==
[2020-09-28 12:58] LABS: #Basophils 0.1 thou/uL (0.0-0.2); #Eosinphils 0.2 thou/uL (0.0-0.7); #Lymphocytes 0.7 thou/uL (1.20-3.40); #Monocytes 0.4 thou/uL (0.11-0.59); #Neutrophils 3.2 thou/uL (1.40-6.50); %Basophils 1.2 % (0.0-1.0); %Eosinophils 4.6 % (0.0-10.0); %Lymphocytes 14.9 % (21.0-51.0); %Monocytes 9.6 % (0.0-10.0); %Neutrophils 69.8 % (42.0-75.0); Hemoglobin 9.1 g/dL (14.0-18.0); Mean Corpuscular HGB CONC 30.2 g/dL (32.0-36.0); Mean Corpuscular Hemoglobin 27.3 pg (27.0-31.0); Mean Corpuscular Volume 90.6 fL (78.0-98.0); Mean Platelet Volume 6.5 fL (7.4-10.4); Platelet Count 184 thou/uL (130-400); Red Blood Cell (RBC) Count 3.34 mill/uL (4.70-6.10); White Blood Cell (WBC) Count 4.6 thou/uL (4.8-10.8)
[2020-09-28 13:06] LABS: Anisocytosis SLIGHT = 6-15 cells (100X) (0-5/hpf); Poikilocytosis SLIGHT = 6-15 cells (100X) (0-5/hpf)
[2020-09-28 13:07] LABS: Platelet Morphology Comment Appears Adequate; Schistocytes SLIGHT = 2-5 cells (100X) (0-1/hpf); Target Cells SLIGHT = 2-5 cells (100X) (0-1/hpf)
[2020-09-28 13:11] LABS: INR-International Normal Ratio 2.9; Prothrombin Time 30.8 sec (12.0-14.7)
[2020-09-28 13:17] LABS: ALT (SGPT) 19 U/L (8-55); AST (SGOT) 23 U/L (5-34); Albumin 3.4 g/dL (3.4-4.8); Alkaline Phosphatase 81 U/L (40-110); Anion Gap 14 mmol/L (10-20); BUN (Urea Nitrogen) 36 mg/dL (8.4-25.7); Bilirubin, Total 0.5 mg/dL (0.2-1.2); Calc. Creatinine Clearance 0 mL/min (70-130); Calcium 8.1 mg/dL (7.8-10.44); Carbon Dioxide 20 mmol/L (23-31); Chloride 111 mmol/L (98-107); Globulin 3.5 g/dL (2.4-3.5); Glucose 99 mg/dL (83-110); Potassium 5.4 mmol/L (3.5-5.1); Protein, Total 6.9 g/dL (5.8-8.1); Sodium 140 mmol/L (136-145)
--- NOTE | 2020-09-28 13:36 | RAD ---
CHEST 2 VIEWS: HISTORY: Anasarca associated with kidney disorder. COMPARISON: 09/05/2010. FINDINGS: Postop midline sternotomy and valvular replacement changes. Left ICD. Prominent proximal pulmonary artery segments bilaterally. Borderline cardiomegaly. No confluent pneumonia, overt edema, or pleur al effusion. IMPRESSION: Mild cardiomegaly with prominent proximal pulmonary artery segments bilaterally. Postoperative valvular replacement changes and left implantable cardioverter defibrillator. Overall stable from prior 09/05/2020. POS: OFF
== END 2020-09-28 12:04 | disposition home or self-care (01) ==
LOC: MADLAB 12:03
PROVIDERS: ATTEND Family Medicine
DX: Z51.81 Encounter for therapeutic drug level monitoring (principal); Z79.899 Other long term (current) drug therapy
CPT/HCPCS: 36415; 71046; 80053; 83880; 85025; 85610

== ENCOUNTER 2020-12-13 09:24 | Outpatient (CLI) | payer MEDICARE ==
[2020-12-13 10:37] LABS: INR-International Normal Ratio 2.5; Prothrombin Time 27.3 sec (12.0-14.7)
== END 2020-12-13 09:25 | disposition home or self-care (01) ==
LOC: MADLAB 09:24
PROVIDERS: ATTEND Physician Assistant Medical
DX: Z51.81 Encounter for therapeutic drug level monitoring (principal); Z79.899 Other long term (current) drug therapy
CPT/HCPCS: 36415; 85610

== ENCOUNTER 2021-03-15 10:20 | Outpatient (CLI) | payer MEDICARE ==
[2021-03-15 10:47] LABS: INR-International Normal Ratio 3.8; Prothrombin Time 38.2 sec (12.0-14.7)
== END 2021-03-15 10:21 | disposition home or self-care (01) ==
LOC: MADLAB 10:20
PROVIDERS: ATTEND Specialist
DX: Z51.81 Encounter for therapeutic drug level monitoring (principal); Z79.899 Other long term (current) drug therapy
CPT/HCPCS: 36415; 85610

== ENCOUNTER 2021-03-28 07:19 | Emergency (ER) | payer MEDICARE ==
[2021-03-28] MEDS ORDERED: Pantoprazole 40 MG VIAL ONE (08:02)
[2021-03-28] MEDS ORDERED: Ondansetron PF 4 MG/2 ML Vial ONE (08:02)
[2021-03-28] MEDS ORDERED: Sodium Chloride 0.9% 500 ML ONE (08:03)
[2021-03-28 08:29] LABS: ALT (SGPT) 15 U/L (8-55); AST (SGOT) 17 U/L (5-34); Albumin 3.4 g/dL (3.4-4.8); Alkaline Phosphatase 71 U/L (40-110); Anion Gap 17 mmol/L (10-20); BUN (Urea Nitrogen) 113 mg/dL (8.4-25.7); Bilirubin, Total 0.4 mg/dL (0.2-1.2); Calc. Creatinine Clearance 0 mL/min (70-130); Calcium 8.7 mg/dL (7.8-10.44); Carbon Dioxide 19 mmol/L (23-31); Chloride 107 mmol/L (98-107); Globulin 3.4 g/dL (2.4-3.5); Glucose 139 mg/dL (83-110); Lipase 37 U/L (8-78); Magnesium 2.2 mg/dL (1.6-2.6); Potassium 4.9 mmol/L (3.5-5.1); Protein, Total 6.8 g/dL (5.8-8.1); Sodium 138 mmol/L (136-145)
[2021-03-28 08:31] LABS: Hemoglobin 5.9 g/dL (14.0-18.0); Mean Corpuscular HGB CONC 30.3 g/dL (32.0-36.0); Mean Corpuscular Hemoglobin 25.9 pg (27.0-31.0); Mean Corpuscular Volume 85.3 fL (78.0-98.0); Platelet Count 277 thou/uL (130-400); RBC Distribution Width 20.5 % (11.5-14.5); Red Blood Cell (RBC) Count 2.26 mill/uL (4.70-6.10); White Blood Cell (WBC) Count 7.2 thou/uL (4.8-10.8)
[2021-03-28 08:32] LABS: #Basophils 0.1 thou/uL (0.0-0.2); #Lymphocytes 0.7 thou/uL (1.20-3.40); #Monocytes 0.5 thou/uL (0.11-0.59); #Neutrophils 5.9 thou/uL (1.40-6.50); %Basophils 0.9 % (0.0-1.0); %Eosinophils 0.2 % (0.0-10.0); %Lymphocytes 9.8 % (21.0-51.0); %Monocytes 6.9 % (0.0-10.0); %Neutrophils 82.1 % (42.0-75.0); Mean Platelet Volume 7.2 fL (7.4-10.4)
[2021-03-28 08:36] LABS: Prothrombin Time 51.8 sec (12.0-14.7)
[2021-03-28 08:37] LABS: INR-International Normal Ratio 5.6
[2021-03-28] MEDS ORDERED: Phytonadione 10 MG/ML AMP ONE (09:01)
[2021-03-28 09:11] LABS: CKMB 1.4 ng/mL (0-6.6)
== END 2021-03-28 10:53 | disposition short-term general hospital (02) ==
LOC: MADERS 07:19
DX: K92.2 Gastrointestinal hemorrhage, unspecified (principal); N17.9 Acute kidney failure, unspecified; I95.9 Hypotension, unspecified; D64.9 Anemia, unspecified; T45.515A Adverse effect of anticoagulants, initial encounter; J44.9 Chronic obstructive pulmonary disease, unspecified; E78.5 Hyperlipidemia, unspecified; I25.10 Atherosclerotic heart disease of native coronary artery without angina pectoris; I11.0 Hypertensive heart disease with heart failure; I50.9 Heart failure, unspecified; I73.9 Peripheral vascular disease, unspecified; Z79.899 Other long term (current) drug therapy
CPT/HCPCS: 36430; 71045; 80053; 82553; 83690; 83735; 83880; 84484; 85025; 85610; 86850; 86900; 86901; 86920; 93005; P9016; 96365; 96375; C9113; J2405; J3430; J7030

== ENCOUNTER 2021-06-02 11:14 | Outpatient (CLI) | payer MEDICARE ==
[2021-06-02 12:39] LABS: INR-International Normal Ratio 4.8
[2021-06-02 12:42] LABS: Prothrombin Time 45.8 sec (12.0-14.7)
== END 2021-06-02 11:15 | disposition home or self-care (01) ==
LOC: MADLAB 11:14
PROVIDERS: ATTEND Specialist
DX: Z51.81 Encounter for therapeutic drug level monitoring (principal); Z79.899 Other long term (current) drug therapy
CPT/HCPCS: 36415; 85610

== ENCOUNTER 2021-06-08 10:31 | Outpatient (CLI) | payer MEDICARE ==
[2021-06-08 11:11] LABS: INR-International Normal Ratio 2.9; Prothrombin Time 30.8 sec (12.0-14.7)
== END 2021-06-08 10:32 | disposition home or self-care (01) ==
LOC: MADLAB 10:31
PROVIDERS: ATTEND Specialist
DX: Z51.81 Encounter for therapeutic drug level monitoring (principal); Z79.899 Other long term (current) drug therapy
CPT/HCPCS: 36415; 85610

== ENCOUNTER 2021-07-04 12:00 | Emergency (ER) | payer MEDICARE ==
[~2021-07-04 12:00] MED LIST changes: +Dextrose 5 % And 0.9 % NaCl 1000 ml Bag ONE; -Sodium Chloride 0.9% 1,000 ML BAG ONE; +Sodium Chloride 0.9% 100 ML BAG ONE
[2021-07-04] MEDS ORDERED: Sodium Chloride 0.9% 1,000 ML ONE (12:51)
[2021-07-04 13:02] LABS: #Basophils 0.1 thou/uL (0.0-0.2); #Eosinphils 0.7 thou/uL (0.0-0.7); #Lymphocytes 1.1 thou/uL (1.20-3.40); #Monocytes 0.4 thou/uL (0.11-0.59); #Neutrophils 2.4 thou/uL (1.40-6.50); %Basophils 2.2 % (0.0-1.0); %Eosinophils 15.2 % (0.0-10.0); %Lymphocytes 23.9 % (21.0-51.0); %Monocytes 7.8 % (0.0-10.0); %Neutrophils 50.9 % (42.0-75.0); Mean Corpuscular Hemoglobin 27.1 pg (27.0-31.0); Mean Corpuscular Volume 87.2 fL (78.0-98.0); Platelet Count 191 thou/uL (130-400); RBC Distribution Width 16.5 % (11.5-14.5); Red Blood Cell (RBC) Count 3.32 mill/uL (4.70-6.10); White Blood Cell (WBC) Count 4.6 thou/uL (4.8-10.8)
[2021-07-04 13:34] LABS: Carbon Dioxide 17 mmol/L (23-31)
[2021-07-04 13:38] LABS: CKMB 1.9 ng/mL (0-6.6)
[2021-07-04 13:49] LABS: ALT (SGPT) 29 U/L (8-55); AST (SGOT) 33 U/L (5-34); Albumin 3.7 g/dL (3.4-4.8); Alkaline Phosphatase 79 U/L (40-110); BUN (Urea Nitrogen) 83 mg/dL (8.4-25.7); Bilirubin, Total 0.4 mg/dL (0.2-1.2); Calc. Creatinine Clearance 0 mL/min (70-130); Calcium 8.6 mg/dL (7.8-10.44); Chloride 108 mmol/L (98-107); Globulin 3.9 g/dL (2.4-3.5); Glucose 92 mg/dL (83-110); Lipase 51 U/L (8-78); Magnesium 2.2 mg/dL (1.6-2.6); Potassium 6.6 mmol/L (3.5-5.1); Protein, Total 7.6 g/dL (5.8-8.1); Sodium 135 mmol/L (136-145)
[2021-07-04 13:52] LABS: Anion Gap 16 mmol/L (10-20)
[2021-07-04 13:57] LABS: INR-International Normal Ratio 2.6; Prothrombin Time 28.6 sec (12.0-14.7)
[2021-07-04 13:58] LABS: PTT 46.4 sec (22.9-36.1)
[2021-07-04] MEDS ORDERED: Calcium Gluc 4.6 MEQ/10 ML (100 MG/ML) ONE (14:03)
[2021-07-04] MEDS ORDERED: Activated Charcoal/Sorbitol 25 GM/120 ML TUBE ONE (14:03)
[2021-07-04] MEDS ORDERED: Albuterol Sulfate 2.5 mg/0.5 ml Neb ONE ×2 (14:06→14:08)
[2021-07-04] MEDS ORDERED: Dextrose 50% Abboject 50 ML SYRINGE ONE ×2 (14:06→15:44)
[2021-07-04] MEDS ORDERED: Pantoprazole 40 MG VIAL ONE (14:06)
[2021-07-04] MEDS ORDERED: Insulin Regular 300 UNITS/3 ML VIAL ONE (14:06)
[2021-07-04 15:35] LABS: Hemoglobin 8.8 g/dL (14.0-18.0)
[2021-07-04 16:28] LABS: ALT (SGPT) 28 U/L (8-55); AST (SGOT) 27 U/L (5-34); Albumin 3.5 g/dL (3.4-4.8); Alkaline Phosphatase 81 U/L (40-110); Anion Gap 13 mmol/L (10-20); BUN (Urea Nitrogen) 79 mg/dL (8.4-25.7); Bilirubin, Total 0.4 mg/dL (0.2-1.2); Calc. Creatinine Clearance 0 mL/min (70-130); Calcium 8.6 mg/dL (7.8-10.44); Carbon Dioxide 17 mmol/L (23-31); Chloride 114 mmol/L (98-107); Globulin 3.4 g/dL (2.4-3.5); Protein, Total 6.9 g/dL (5.8-8.1); Sodium 139 mmol/L (136-145)
[2021-07-04] MEDS ORDERED: Magnesium 2 GM/50 ML BAG (IN WATER) ONE (16:29)
[2021-07-04 16:31] LABS: Glucose 38 mg/dL (83-110)
[2021-07-04 18:04] LABS: Bilirubin Negative (Negative); Blood, Urine Trace (Negative); Glucose, Urine (Dipstick) Negative (Negative); Ketone, Urine Negative (Negative); Leukocyte Negative (Negative); Nitrite Negative (Negative); Protein, Urine (Dipstick) Negative (Neg-Trace); Urobilinogen 0.2 mg/dL (Less than 2); pH, Urine 5.5 (5.0-9.0)
[2021-07-04 18:05] LABS: Clarity Hazy (Clear)
[2021-07-04 18:11] LABS: Bacteria/HPF Rare-Few HPF (None Seen); RBC/HPF 0-3 HPF (0-3); Squamous Epithelial 0-3 HPF (0-3); WBC/HPF 0-3 HPF (0-3)
== END 2021-07-04 18:20 | disposition short-term general hospital (02) ==
LOC: MADERS 12:00
DX: K92.2 Gastrointestinal hemorrhage, unspecified (principal); N17.9 Acute kidney failure, unspecified; I13.0 Hypertensive heart and chronic kidney disease with heart failure and stage 1 through stage 4 chronic kidney disease, or unspecified chronic kidney disease; I50.9 Heart failure, unspecified; N18.9 Chronic kidney disease, unspecified; R79.89 Other specified abnormal findings of blood chemistry; E87.5 Hyperkalemia; I25.10 Atherosclerotic heart disease of native coronary artery without angina pectoris; E78.5 Hyperlipidemia, unspecified; J44.9 Chronic obstructive pulmonary disease, unspecified; I73.9 Peripheral vascular disease, unspecified; Z79.01 Long term (current) use of anticoagulants; Z79.899 Other long term (current) drug therapy
CPT/HCPCS: 36416; 71045; 80053; 81003; 81015; 82274; 82553; 83690; 83735; 83880; 84484; 85025; 85610; 85730; 86850; 86900; 86901; 93005; 96365; 96367; 96375; 96376; C9113; J0610; J1815; J3475; J3490; J7042; J7050; J7611

== ENCOUNTER 2021-07-21 11:22 | Outpatient (CLI) | payer MEDICARE ==
[2021-07-21 15:41] LABS: INR-International Normal Ratio 3.6; Prothrombin Time 36.8 sec (12.0-14.7)
== END 2021-07-21 11:23 | disposition home or self-care (01) ==
LOC: MADLAB 11:22
PROVIDERS: ATTEND Specialist
DX: Z51.81 Encounter for therapeutic drug level monitoring (principal); Z79.899 Other long term (current) drug therapy
CPT/HCPCS: 36415; 85610

== ENCOUNTER 2021-08-23 10:07 | Outpatient (CLI) | payer MEDICARE ==
[2021-08-23 10:35] LABS: Anion Gap 16 mmol/L (10-20); BUN (Urea Nitrogen) 85 mg/dL (8.4-25.7); Calc. Creatinine Clearance 0 mL/min (70-130); Calcium 8.8 mg/dL (7.8-10.44); Carbon Dioxide 20 mmol/L (23-31); Chloride 105 mmol/L (98-107); Glucose 105 mg/dL (83-110); Potassium 4.7 mmol/L (3.5-5.1); Sodium 136 mmol/L (136-145)
[2021-08-23 10:41] LABS: INR-International Normal Ratio 5.4
[2021-08-23 11:28] LABS: #Basophils 0.1 thou/uL (0.0-0.2); #Eosinphils 0.3 thou/uL (0.0-0.7); #Lymphocytes 0.7 thou/uL (1.20-3.40); #Monocytes 0.4 thou/uL (0.11-0.59); #Neutrophils 2.8 thou/uL (1.40-6.50); %Basophils 1.8 % (0.0-1.0); %Eosinophils 6.9 % (0.0-10.0); %Lymphocytes 16.7 % (21.0-51.0); %Monocytes 9.1 % (0.0-10.0); %Neutrophils 65.5 % (42.0-75.0); Anisocytosis MODERATE=16-30 cells (100X) (0-5/hpf); Hemoglobin 9.2 g/dL (14.0-18.0); Hypochromia SLIGHT = 6-15 cells (100X) (0-5/hpf); MDiff Complete? YES; Mean Corpuscular HGB CONC 29.4 g/dL (32.0-36.0); Mean Corpuscular Hemoglobin 23.7 pg (27.0-31.0); Mean Corpuscular Volume 80.6 fL (78.0-98.0); Nucleated RBC 0 % (0); Platelet Count 233 thou/uL (130-400); Platelet Morphology Comment Appears Adequate; Red Blood Cell (RBC) Count 3.89 mill/uL (4.70-6.10); White Blood Cell (WBC) Count 4.3 thou/uL (4.8-10.8)
== END 2021-08-23 10:08 | disposition home or self-care (01) ==
LOC: MADLAB 10:07
PROVIDERS: ATTEND Physician Assistant Medical
DX: I50.42 Chronic combined systolic (congestive) and diastolic (congestive) heart failure (principal); I48.0 Paroxysmal atrial fibrillation; Z79.899 Other long term (current) drug therapy
CPT/HCPCS: 36415; 80048; 85025; 85610

== ENCOUNTER 2021-12-22 08:37 | Emergency (ER) | payer MEDICARE ==
[2021-12-22 09:38] LABS: INR-International Normal Ratio 1.6; Prothrombin Time 19.4 sec (12.0-14.7)
[2021-12-22 09:39] LABS: ALT (SGPT) 18 U/L (8-55); AST (SGOT) 27 U/L (5-34); Albumin 3.3 g/dL (3.4-4.8); Alkaline Phosphatase 99 U/L (40-110); Anion Gap 17 mmol/L (10-20); BUN (Urea Nitrogen) 45 mg/dL (8.4-25.7); Bilirubin, Total 1.1 mg/dL (0.2-1.2); Calc. Creatinine Clearance 0 mL/min (70-130); Calcium 8.6 mg/dL (7.8-10.44); Carbon Dioxide 17 mmol/L (23-31); Chloride 108 mmol/L (98-107); Globulin 3.8 g/dL (2.4-3.5); Glucose 79 mg/dL (83-110); Potassium 5.2 mmol/L (3.5-5.1); Protein, Total 7.1 g/dL (5.8-8.1); Sodium 137 mmol/L (136-145)
[2021-12-22 09:39] LABS: PTT 42.9 sec (22.9-36.1)
[2021-12-22 09:40] LABS: Hemoglobin 8.1 g/dL (14.0-18.0); Mean Corpuscular Volume 77.2 fL (78.0-98.0); White Blood Cell (WBC) Count 3.7 thou/uL (4.8-10.8)
[2021-12-22 09:41] LABS: Mean Corpuscular HGB CONC 29.2 g/dL (32.0-36.0); Mean Corpuscular Hemoglobin 22.5 pg (27.0-31.0); Mean Platelet Volume 10.3 fL (7.4-10.4); Platelet Count 252 thou/uL (130-400)
[2021-12-22 09:55] LABS: Band 1 % (5-11); Lymphocytes 22 % (21-51); MDiff Complete? YES; Manual Diff?? YES; Neutrophil 62 % (42-75)
[2021-12-22 09:56] LABS: Anisocytosis SLIGHT = 6-15 cells (100X) (0-5/hpf); Eosinophils 7 % (0-10); Monocytes 8 % (0-10); Platelet Morphology Comment Appears Adequate
== END 2021-12-22 10:05 | disposition home or self-care (01) ==
LOC: MADERS 08:37
DX: R04.0 Epistaxis (principal); D64.9 Anemia, unspecified; I13.0 Hypertensive heart and chronic kidney disease with heart failure and stage 1 through stage 4 chronic kidney disease, or unspecified chronic kidney disease; N18.9 Chronic kidney disease, unspecified; I50.9 Heart failure, unspecified; I25.10 Atherosclerotic heart disease of native coronary artery without angina pectoris; E78.5 Hyperlipidemia, unspecified; J44.9 Chronic obstructive pulmonary disease, unspecified; I73.9 Peripheral vascular disease, unspecified; Z95.0 Presence of cardiac pacemaker; Z79.899 Other long term (current) drug therapy
CPT/HCPCS: 80053; 85025; 85610; 85730; 99283

== ENCOUNTER 2022-01-10 09:20 | Emergency (ER) | payer MEDICARE ==
[2022-01-10] MEDS ORDERED: Ondansetron PF 4 MG/2 ML Vial ONE (10:21)
[2022-01-10] MEDS ORDERED: Sodium Chloride 0.9% 500 ML ONE (10:21)
[2022-01-10 10:32] LABS: Prothrombin Time 47.5 sec (12.0-14.7)
[2022-01-10] MEDS ORDERED: Sodium Chloride 0.9% 100 ML ONE (11:32)
[2022-01-10] MEDS ORDERED: Pantoprazole 40 MG VIAL ONE (11:32)
[2022-01-10] MEDS ORDERED: Phytonadione 10 MG/ML AMP ONE (11:32)
[2022-01-10] MEDS ORDERED: Human Prothrombin Complx(PCC) 500 UNIT VIAL ONE (11:33)
[2022-01-10] MEDS ORDERED: HUM PROTHROMBIN CPLX(PCC)4FACT 1,000 UNIT VIAL ONE (11:33)
[2022-01-10 11:35] LABS: Band 1 % (5-11); Eosinophils 14 % (0-10); Hemoglobin 6.5 g/dL (14.0-18.0); Hypochromia MODERATE=16-30 cells (100X) (0-5/hpf); Lymphocytes 13 % (21-51); MDiff Complete? YES; Mean Corpuscular HGB CONC 28.8 g/dL (32.0-36.0); Mean Corpuscular Hemoglobin 20.5 pg (27.0-31.0); Mean Corpuscular Volume 71.2 fL (78.0-98.0); Mean Platelet Volume 7.9 fL (7.4-10.4); Microcytosis SLIGHT = 6-15 cells (100X) (0-5/hpf); Monocytes 5 % (0-10); Neutrophil 67 % (42-75); Platelet Count 181 thou/uL (130-400); Platelet Morphology Comment Appears Adequate; RBC Distribution Width 19.5 % (11.5-14.5); Red Blood Cell (RBC) Count 3.17 mill/uL (4.70-6.10); Target Cells SLIGHT = 2-5 cells (100X) (0-1/hpf)
[2022-01-10 11:49] LABS: White Blood Cell (WBC) Count 4.5 thou/uL (4.8-10.8)
[2022-01-10 12:05] LABS: ALT (SGPT) 15 U/L (8-55); AST (SGOT) 27 U/L (5-34); Albumin 3.1 g/dL (3.4-4.8); Alkaline Phosphatase 86 U/L (40-110); Anion Gap 18 mmol/L (10-20); BUN (Urea Nitrogen) 99 mg/dL (8.4-25.7); Bilirubin, Total 0.8 mg/dL (0.2-1.2); Calc. Creatinine Clearance 0 mL/min (70-130); Calcium 8.2 mg/dL (7.8-10.44); Carbon Dioxide 23 mmol/L (23-31); Chloride 101 mmol/L (98-107); Globulin 3.2 g/dL (2.4-3.5); Glucose 98 mg/dL (83-110); Magnesium 1.8 mg/dL (1.6-2.6); Potassium 4.9 mmol/L (3.5-5.1); Protein, Total 6.3 g/dL (5.8-8.1); Sodium 137 mmol/L (136-145)
[2022-01-10 12:14] LABS: CKMB 1.3 ng/mL (0-6.6)
== END 2022-01-10 13:22 | disposition short-term general hospital (02) ==
LOC: MADERS 09:20
DX: K92.2 Gastrointestinal hemorrhage, unspecified (principal); D64.9 Anemia, unspecified; R79.89 Other specified abnormal findings of blood chemistry; I25.10 Atherosclerotic heart disease of native coronary artery without angina pectoris; I11.0 Hypertensive heart disease with heart failure; I50.9 Heart failure, unspecified; E78.5 Hyperlipidemia, unspecified; J44.9 Chronic obstructive pulmonary disease, unspecified; Z79.899 Other long term (current) drug therapy
CPT/HCPCS: 36430; 71045; 80053; 82274; 82553; 83735; 83880; 84484; 85025; 85610; 85730; 86850; 86900; 86901; 93005; 96365; 96375; C9113; J2405; J3430; J7030; J7168; P9016; U0003; U0005

== ENCOUNTER 2022-01-26 08:54 | Outpatient (CLI) | payer MEDICARE ==
[2022-01-26 09:17] LABS: INR-International Normal Ratio 2.9; Prothrombin Time 30.8 sec (12.0-14.7)
== END 2022-01-26 08:55 | disposition home or self-care (01) ==
LOC: MADLAB 08:54
PROVIDERS: ATTEND Internal Medicine Cardiovascular Disease
DX: Z51.81 Encounter for therapeutic drug level monitoring (principal); Z79.01 Long term (current) use of anticoagulants; Z95.2 Presence of prosthetic heart valve
CPT/HCPCS: 36415; 85610

== ENCOUNTER 2022-01-28 08:12 | Emergency (ER) | payer MEDICARE ==
[2022-01-28] MEDS ORDERED: Dexamethasone 10 MG/ML VIAL ONE (08:40)
[2022-01-28] MEDS ORDERED: Sodium Chloride 0.9% 100 ML ONE (08:40)
[2022-01-28] MEDS ORDERED: Ondansetron PF 4 MG/2 ML Vial ONE (08:40)
[2022-01-28] MEDS ORDERED: Sodium Chloride 0.9% 1,000 ML ONE ×2 (08:40→10:19)
[2022-01-28] MEDS ORDERED: Cefepime 2 GM VIAL ONE (08:40)
[2022-01-28] MEDS ORDERED: Sodium Chloride 0.9% 250 ML 250 ML ONE (09:40)
[2022-01-28 09:49] LABS: #Basophils 0.3 thou/uL (0.0-0.2); #Eosinphils 0.2 thou/uL (0.0-0.7); #Lymphocytes 0.8 thou/uL (1.20-3.40); #Monocytes 1.2 thou/uL (0.11-0.59); #Neutrophils 12.1 thou/uL (1.40-6.50); %Basophils 2.3 % (0.0-1.0); %Lymphocytes 5.7 % (21.0-51.0); %Monocytes 8.3 % (0.0-10.0); %Neutrophils 82.8 % (42.0-75.0); Anisocytosis SLIGHT = 6-15 cells (100X) (0-5/hpf); Hemoglobin 9.8 g/dL (14.0-18.0); Hypochromia SLIGHT = 6-15 cells (100X) (0-5/hpf); MDiff Complete? YES; Mean Corpuscular HGB CONC 29.3 g/dL (32.0-36.0); Mean Corpuscular Hemoglobin 23.3 pg (27.0-31.0); Mean Corpuscular Volume 79.5 fL (78.0-98.0); Mean Platelet Volume 8.2 fL (7.4-10.4); Platelet Count 234 thou/uL (130-400); Platelet Morphology Comment Appears Adequate; RBC Distribution Width 24.3 % (11.5-14.5); Red Blood Cell (RBC) Count 4.22 mill/uL (4.70-6.10); White Blood Cell (WBC) Count 14.6 thou/uL (4.8-10.8)
[2022-01-28 09:55] LABS: ALT (SGPT) 12 U/L (8-55); AST (SGOT) 39 U/L (5-34); Albumin 3.4 g/dL (3.4-4.8); Alkaline Phosphatase 124 U/L (40-110); Anion Gap 20 mmol/L (10-20); BUN (Urea Nitrogen) 57 mg/dL (8.4-25.7); Bilirubin, Total 1.2 mg/dL (0.2-1.2); Calc. Creatinine Clearance 0 mL/min (70-130); Calcium 8.5 mg/dL (7.8-10.44); Carbon Dioxide 16 mmol/L (23-31); Chloride 105 mmol/L (98-107); Globulin 4.8 g/dL (2.4-3.5); Glucose 97 mg/dL (83-110); Potassium 5.5 mmol/L (3.5-5.1); Protein, Total 8.2 g/dL (5.8-8.1); Sodium 135 mmol/L (136-145)
[2022-01-28] MEDS ORDERED: Sodium Chloride 0.9% 0 ML ONE (10:19)
[2022-01-28 10:22] LABS: SARS-CoV-2 NAA Rapid Test Not Detected (NotDetected)
[2022-01-28 10:23] LABS: INR-International Normal Ratio 3.2
[2022-01-28 10:24] LABS: PTT 71.8 sec (22.9-36.1)
== END 2022-01-28 11:02 | disposition admitted as inpatient to this hospital (09) ==
LOC: MADERS 08:12
DX: A41.9 Sepsis, unspecified organism (principal); R65.21 Severe sepsis with septic shock; N17.9 Acute kidney failure, unspecified; J44.1 Chronic obstructive pulmonary disease with (acute) exacerbation; R77.8 Other specified abnormalities of plasma proteins; E87.5 Hyperkalemia; Z20.822 Contact with and (suspected) exposure to COVID-19; I25.10 Atherosclerotic heart disease of native coronary artery without angina pectoris; I50.9 Heart failure, unspecified; E78.5 Hyperlipidemia, unspecified; I11.0 Hypertensive heart disease with heart failure; Z79.899 Other long term (current) drug therapy
CPT/HCPCS: 71045; 80053; 82553; 83605; 83880; 84484; 85025; 85610; 85730; 87040; 87804 ×2; 93005; 94760; U0002; 36415; 96365; 96367; 96375; J0692; J1100; J2405; J3370; J3490; J7030; J7050; J7620